=== PATIENT | female | born 1930 | race Caucasian/White ===

== ENCOUNTER 2018-04-24 08:44 | Day surgery (SDC) | payer MEDICARE ==
[~2018-04-24] VITALS: Ht 162.6 cm; Wt 54.2 kg
[2018-04-24] VITALS (19 sets, daily range): BP systolic 103–150; BP diastolic 45–61
[~2018-04-24 08:44] MED LIST: SODIUM CHLORIDE 0.9% 1000ML 1,000 ML IV ONE
[2018-04-24 10:12] LABS: BASOPHILS % (AUTO) 1.2 % (0.0-5.0); HEMATOCRIT 28.7 % (36-48); LYMPHOCYTES % (AUTO) 19.5 % (21.0-51.0); MEAN CORPUSCULAR HEMOGLOBIN 23.4 pg (27.0-33.0); MEAN CORPUSCULAR HGB CONC 30.5 g/dL (32.0-36.0); MEAN CORPUSCULAR VOLUME 76.8 fL (79-99); MONOCYTES % (AUTO) 14.9 % (3.0-13.0); NEUTROPHILS % (AUTO) 58.4 % (40.0-77.0); NUCLEATED RED BLOOD CELLS 0.1 % (0.0-0.19); PLATELET COUNT (AUTO) 470 K/uL (130-400); RED BLOOD CELL COUNT(AUTO) 3.74 MIL/uL (4.00-5.50); RED CELL DISTRIBUTION WIDTH 18.8 % (11.0-15.5); WHITE BLOOD COUNT (AUTO) 5.3 K/uL (4.8-10.8)
[2018-04-24] MEDS ORDERED: RIVA10TA PO (10:12)
[2018-04-24 10:21] LABS: % IRON SATURATION 3.8 % (22-44)
[2018-04-24] MEDS ORDERED: PROPOFOL 10 MG/ML 20ML VIAL IV ONE (10:41)
[2018-04-24] MEDS ORDERED: IPRATROPIUM/ALBUTEROL SULFATE 3 ML SOLUTION IH ONE (11:08)
--- NOTE | 2018-04-24 12:15 | NUR ---
XARELTO PER PT/PT'S , XARELTO WAS HELD BY SOLIDS CONTROL TECHNICIAN FOR 2 WEEKS NOW AND THAT SOLIDS CONTROL TECHNICIAN WILL LET THEM KNOW WHEN TO RESUME XARELTO.
--- NOTE | 2018-04-24 12:35 | NUR ---
CHEST X-RAY CHEST X-RAY RESULT SEEN BY Emilia OTOOLE CRNA, STATED HE WILL COME SEE PT BEFORE DISCHARGE.
--- NOTE | 2018-04-24 12:55 | NUR ---
NOTE B. [employer] OFFICER HERE TALKING TO PT AND PRIOR TO DISCHARGE. INSTRUCTIONS TO FOLLOW UP WITH LAST REPAIRER HELPER AND GO BACK TO EMERGENCY ROOM FOR ANY PROBLEMS, RESPIRATORY DISTRESS LIKE PERSISTENT COUGHING, DIFFICULTY BREATHING. PT AND VERBALIZED UNDERSTANDING.
== END 2018-04-24 13:00 | disposition home or self-care (01) ==
LOC: DAH 08:44 → ENDO 08:44
PROVIDERS: ATTEND Internal Medicine
DX: K21.0 Gastro-esophageal reflux disease with esophagitis (principal); K44.9 Diaphragmatic hernia without obstruction or gangrene; D50.9 Iron deficiency anemia, unspecified; K31.89 Other diseases of stomach and duodenum; Z79.899 Other long term (current) drug therapy; Z98.49 Cataract extraction status, unspecified eye; Z80.0 Family history of malignant neoplasm of digestive organs; I48.91 Unspecified atrial fibrillation; Z79.01 Long term (current) use of anticoagulants; K29.50 Unspecified chronic gastritis without bleeding; K31.7 Polyp of stomach and duodenum
CPT/HCPCS: 36415; 43239; 71045; 83540; 83550; 85025; 88305; 93005; 94640; A4606; J2704; J7030